=== PATIENT | male | born 1965 ===

== ENCOUNTER → 2016-06-01 | Outpatient (CLI) | payer BC | LOC: GMAB 11:04 | PROVIDERS: ATTEND Family Medicine | DX: Z00.01 Encounter for general adult medical examination with abnormal findings (principal) ==

== ENCOUNTER → 2016-06-12 | Outpatient (CLI) | payer BC | LOC: GMAB 10:52 | PROVIDERS: ATTEND Family Medicine | DX: E29.1 Testicular hypofunction (principal) ==

== ENCOUNTER → 2018-02-06 | Outpatient (CLI) | payer BC ==
--- NOTE | 2018-02-06 12:39 | US ---
EXAM DESCRIPTION: Soft Tissue,Extremity CLINICAL HISTORY: 52 years Male, PAIN COMPARISON: None. FINDINGS: Ultrasound of the right forearm was performed. No solid mass or fluid collections identified at the area of concern to explain patient's symptoms. No interstitial edema or skin thickening. IMPRESSION: Negative exam. Electronically signed by: Haseeb Chiu MD 02/06/2018 12:38 PM CDT
--- NOTE | 2018-02-06 12:42 | RAD ---
EXAM DESCRIPTION: Forearm,Right CLINICAL HISTORY: 52 years Male, PAIN COMPARISON: None. FINDINGS: Two views of the right forearm show no acute fracture or malalignment. No focal bone lesion or periostitis. No soft tissue abnormality. IMPRESSION: Negative exam. Electronically signed by: Haseeb Chiu MD 02/06/2018 12:41 PM CDT
--- NOTE | 2018-02-06 12:46 | RAD ---
EXAM DESCRIPTION: Wrist,Right 3 Views CLINICAL HISTORY: 52 years Male, PAIN COMPARISON: None. FINDINGS: Three views of the right wrist show no acute fracture or malalignment. No joint space narrowing. No focal bone lesion or soft tissue abnormality. IMPRESSION: Negative exam. Electronically signed by: Haseeb Chiu MD 02/06/2018 12:44 PM CDT
== END ==
LOC: RAD 12:06
PROVIDERS: ATTEND Family Medicine
DX: M25.531 Pain in right wrist (principal); M79.631 Pain in right forearm

== ENCOUNTER → 2018-07-26 | Outpatient (CLI) | payer OTHER ==
--- NOTE | 2018-07-26 15:02 | CT ---
EXAM DESCRIPTION: Head: Computed Tomography. CLINICAL HISTORY: CLASSIC MIGRAINE COMPARISON: None. TECHNIQUE: Non-helical axial scans through the skull and brain, at 5 x 20 mm intervals, non-contrast. Coronal and sagittal 2 mm reconstructions. Axial 2.5 x 20 mm nonhelical reconstructions. Total Exam DLP: 859.97 mGy-cm. This exam was performed according to our departmental dose-optimization program which includes automated exposure control, adjustment of the mA and/or kV according to patient size and/or use of iterative reconstruction technique; to reduce radiation dose to as low as reasonably achievable (ALARA). FINDINGS: No hemorrhage, no mass-effect, and no midline shift. Normal ortega-white matter differentiation. No abnormal radiodense material in the brain parenchyma. Vascular calcifications not present; physiologic calcifications in the pineal gland and choroid plexus. No effacement or displacement of the ventricles, CSF spaces, or subdural spaces. No extra axial fluid collection or hemorrhage. No gross abnormalities of the bony calvarium. Minimal mucoperiosteal thickening in the ethmoid air cells. Mastoid air cells are unremarkable. IMPRESSION: 1. No hemorrhage, no mass effect, no midline shift. Normal noncontrast CT appearance of the brain. 2. CT scans are insensitive for detecting small CVAs in the first 24 hours after onset. Evaluation of the brain stem is also limited. If symptoms persist, consider NON-EMERGENT MRI scan of the brain with diffusion imaging. 3. Chronic paranasal ethmoid sinusitis. Electronically signed by: Sid Weber MD 07/26/2018 2:59 PM CDT
== END ==
LOC: CT 13:25
PROVIDERS: ATTEND Family Medicine
DX: G43.009 Migraine without aura, not intractable, without status migrainosus (principal); J32.2 Chronic ethmoidal sinusitis

== ENCOUNTER → 2020-03-10 | Outpatient (CLI) | payer BC | LOC: GMAE 10:35 | PROVIDERS: ATTEND Family Medicine | DX: D50.9 Iron deficiency anemia, unspecified (principal) ==

== ENCOUNTER → 2020-04-29 | Outpatient (CLI) | payer BC | LOC: GMAE 10:45 | PROVIDERS: ATTEND Family Medicine | DX: E29.1 Testicular hypofunction (principal); E11.40 Type 2 diabetes mellitus with diabetic neuropathy, unspecified ==

== ENCOUNTER → 2020-05-21 | Outpatient (CLI) | payer BC | LOC: GMAE 12:35 | PROVIDERS: ATTEND Family Medicine | DX: I10 Essential (primary) hypertension (principal); E11.9 Type 2 diabetes mellitus without complications; E29.1 Testicular hypofunction; E78.2 Mixed hyperlipidemia ==